=== PATIENT | male | born 1960 | race Caucasian/White ===

== ENCOUNTER 2021-04-25 08:34 | Day surgery (SDC) | payer OTHER ==
[2021-04-24 09:44] VITALS: BMI 22.3
[~2021-04-25 08:34] MED LIST: LACTATED RINGERS 1,000 ML IV SCH; LIDOCAINE 1% INJ 10MG/ML (20 ML MDV) ONE; PROPOFOL 10 MG/ML 20 ML VIAL IV ONE
[2021-04-25 08:51] VITALS: TEMP 97.8
[2021-04-25] MEDS ORDERED: LIDOCAINE 1% (10MG/ML) FOR IV START INTRADERMA ONE (09:04)
--- NOTE | 2021-04-25 09:54 | P.PCN ---
Date of Procedure: 04/25/21 Description of Procedure: BRIEF HISTORY: Patient is a 60-year-old male presenting for outpatient colonoscopy for family history of colon cancer. He reports last colonoscopy 7 years ago. Family history of colon cancer in his sister. No change in bowel habits or blood per rectum. PROCEDURE PERFORMED: Colonoscopy. PREOPERATIVE DIAGNOSIS: Family history of colon cancer, last colonoscopy 7 years ago (Sr. with colon cancer). ESTIMATED BLOOD LOSS: Minimal. IV sedation per Anesthesia. PROCEDURE: After informed consent was obtained, the patient, was brought into the endoscopy unit. IV sedation was administered by Anesthesia under continuous monitoring. Digital rectal examination was normal. Initially the Olympus CF-190 flexible video colonoscope was then inserted in the rectum, gradually advanced into the cecum without any difficulty. Careful examination was performed as the scope was gradually being withdrawn. Ileocecal valve and the appendiceal orifice were visualized and appeared normal. Prep was excellent. Mucosa of the cecum, ascending colon, transverse colon, descending colon, sigmoid colon, and rectum appeared normal, except for a few scattered diverticula in the sigmoid colon. Retroflexion was performed in the rectum and no lesions were seen, with low- grade internal hemorrhoids. The patient tolerated the procedure well. IMPRESSION: Normal-appearing colon from rectum to cecum. Mild sigmoid diverticulosis. RECOMMENDATIONS: Findings of this examination were discussed with the patient and his family. Okay to resume diet. Okay to resume medications. Recommend repeat colonoscopy in 5 years for family history of colon cancer.
[2021-04-25 09:56] VITALS: RESP 14
[2021-04-25 10:11] VITALS: BP 100/66; PULSE 64
== END 2021-04-25 10:29 | disposition home or self-care (01) ==
LOC: ORWHC2ENDO 08:34
PROVIDERS: ATTEND Internal Medicine
DX: Z12.11 Encounter for screening for malignant neoplasm of colon (principal); K57.30 Diverticulosis of large intestine without perforation or abscess without bleeding; Z80.0 Family history of malignant neoplasm of digestive organs; Z90.89 Acquired absence of other organs
CPT/HCPCS: J2001; J2704; G0105